=== PATIENT | male | born 1950 | race Caucasian/White ===

== ENCOUNTER 2018-10-05 10:22 | Day surgery (SDC) | payer OTHER, BC ==
[~2018-10-05] VITALS: Ht 172.7 cm; Wt 77.1 kg
[~2018-10-05 10:22] MED LIST: HYDACE5 PO
--- NOTE | 2018-10-05 11:50 | NUR ---
Ambulatory in Day Surgery History, Chart, Medications and Allergies reviewed before start of procedure.Patient States Post-Procedure ride home has been arranged.
--- NOTE | 2018-10-05 12:54 | NUR ---
10/05/18 1254 Carlton Campbell Bite Block PlacedPatient to ENDO 1History, Chart, Medications and Allergies reviewed before start of procedure.MONITOR INTACT WITH CONTINUOUS PULSE OXIMETRY AND INTERMITTENT BP.O2 VIA N/C INTACT THROUGHOUT SEDATION/PROCEDURE.See Anesthesia record.
--- NOTE | 2018-10-05 13:31 | NUR ---
FROM ENDO 1 TO STEP VSS.
--- NOTE | 2018-10-05 14:14 | NUR ---
WENT OVER DISCHARGE INSTRUCTIONS WITH PATIENT COPIED AND SENT HOME WITH PATIENT ORIGINALS AND PRESCRIPTION. PATIENT ALERT AND ORIENTED. SENT HOME WITH TOOTH WICH CAME OUT OF MOUTH AFTER PROCEDURE OVER.
== END 2018-10-05 12:00 | disposition home or self-care (01) ==
LOC: ORSCMMR 10:22 → SURS 10:23 → ORD 11:30 → ORSCMMR 11:30
PROVIDERS: Surgery
PROC: 0DH63UZ Insertion of Feeding Device into Stomach, Percutaneous Approach (ICD-10-PCS; principal; 2018-10-05 12:55)
DX: C09.9 Malignant neoplasm of tonsil, unspecified (principal); C77.0 Secondary and unspecified malignant neoplasm of lymph nodes of head, face and neck; R13.10 Dysphagia, unspecified; I10 Essential (primary) hypertension; K29.80 Duodenitis without bleeding; Z87.891 Personal history of nicotine dependence; Z79.899 Other long term (current) drug therapy
CPT/HCPCS: C1769; J0690; J7120

== ENCOUNTER 2022-01-09 11:11 | Day surgery (SDC) | payer OTHER, BC ==
[~2022-01-09] VITALS: Ht 172.7 cm; Wt 82.2 kg
== END 2022-01-09 14:25 | disposition home or self-care (01) ==
LOC: ORSCSDS 11:11 → ORSCMMR 12:45 → ORD 13:30 → ORSCSDS 13:30
PROVIDERS: Internal Medicine Gastroenterology
PROC: 0DB68ZX Excision of Stomach, Via Natural or Artificial Opening Endoscopic, Diagnostic (ICD-10-PCS; 2022-01-09)
PROC: 0D758ZZ Dilation of Esophagus, Via Natural or Artificial Opening Endoscopic (ICD-10-PCS; 2022-01-09)
PROC: 0D757ZZ Dilation of Esophagus, Via Natural or Artificial Opening (ICD-10-PCS; principal; 2022-01-09 12:45)
DX: R13.10 Dysphagia, unspecified (principal); K31.7 Polyp of stomach and duodenum; K22.2 Esophageal obstruction; I10 Essential (primary) hypertension; Z79.899 Other long term (current) drug therapy
CPT/HCPCS: 88305; 88342; C1726; J2704; J7120